=== PATIENT | female | born 1980 | race African-American/Black ===

== ENCOUNTER 2019-09-12 09:29 | Outpatient (CLI) | payer OTHER, SELFPAY ==
--- NOTE | ~2019-09-12 | US_ITS ---
EXAMINATION: US thyroid DATE: 09/12/2019 10:40 INDICATION: Thyroid disorder. TECHNIQUE: Multiple ultrasound images of the thyroid were obtained. COMPARISON: None. FINDINGS: The right thyroid lobe measures 3.9 x 1.1 x 1.1 cm. The left thyroid lobe measures 4.3 x 1.2 x 1.8 c m. The thyroid demonstrates heterogeneous echogenicity. Vascularity is normal. In the right thyroid lobe, there is a 7 mm solid, hypoechoic, [id number] nodule with ill-defined margin without echog enic foci (TI-RADS TR4). In the left thyroid lobe, there is an 8 mm solid, hypoechoic, [id number]-[id number]-dle l nodule with ill-defined margin without echogenic foci (TR4). IMPRESSION: 1. Small thyroid nodules, likely not clinically significant. No follow-up is needed. Reviewed, dictated and finalized at location A. 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 Small thyroid nodules, likely not clinically significant. No follow-up is ne eded.
== END 2019-09-12 09:30 | disposition home or self-care (01) ==
PROVIDERS: PCP Emergency Medicine; Visit Provider Emergency Medicine
DX: E07.9 Disorder of thyroid, unspecified (principal); E04.2 Nontoxic multinodular goiter
CPT/HCPCS: 76536

== ENCOUNTER 2019-09-14 17:24 | Emergency (ER) | payer OTHER, SELFPAY ==
--- NOTE | ~2019-09-14 | XR_ITS ---
EXAMINATION: XR chest 2V DATE: 09/14/2019 19:00 INDICATION: High blood pressure and dizziness TECHNIQUE: PA and lateral views of the chest are obtained. COMPARISON: 05/03/2019 FINDINGS: The lungs are free of acute opacities. There is no pleural effusion or pneumothorax. The ca rdiomediastinal silhouette is normal. The visualized bones and soft tissues are unremarkable. IMPRESSION: 1. No acute cardiopulmonary abnormality. Reviewed, dictated and finalized at location A. [employer]
[2019-09-14 18:30] VITALS: BP 145/94; PULSE 87; RESP 16; TEMP 37; O2SAT 100
--- NOTE | 2019-09-14 18:35 | ECG_ITS ---
Measurements Intervals [place] Rate: 93 P: 58 AR: 135 QRS: 66 QRSD: 85 T: 1 QT: 319 QTc: 399 Interpretive Statements SINUS RHYTHM POSSIBLE LEFT ATRIAL ENLARGEMENT NONSPECIFIC T-WAVE ABNORMALITY- ANTEROLAT/INF LEADS BASELINE ARTIFACT- I, II, AVR, AVL, V1 BORDERLINE ECG Electronically Signed On 09-14-2019 20:12:10 PENAL OFFICER by Rafi Soares D.O.
[2019-09-14 18:55] LABS: Basophils Percent Auto 0.3 % (0.2-1.2); Eosinophils Percent Auto 0.3 % (0-4.4); Hematocrit 44.6 % (37.0-47.0); Hemoglobin 14.7 g/dL (12.0-15.0); Immature Granulocyte Absolute 0.04 K/mm3 (0.00-0.031); Immature Granulocyte Percent A 0.4 % (0-0.5); Lymphocytes Absolute Auto 2.53 K/mm3 (0.9-3.2); Lymphocytes Percent Auto 22.6 % (18.3-44.2); Mean Corpuscular Hemoglobin 29.2 pg (26-34); Mean Corpuscular Volume 88.5 fl (80-100); Mean Platelet Volume 10.4 fl (7.4-10.4); Monocytes Absolute Auto 0.6 K/mm3 (0.1-0.6); Monocytes Percent Auto 4.9 % (2.6-8.5); Neutrophils Percent Auto 71.5 % (45.5-73.1); Platelet Count Result 282 k/mm3 (150-375); Red Blood Count 5.04 M/mm3 (4.2-5.4); Red Cell Distribution Width 12.7 % (11.5-14.5); White Blood Count 11.2 K/mm3 (4.5-10.0)
[2019-09-14 19:10] LABS: Blood Urea Nitrogen 5 mg/dL (7-17); Calcium 9.7 mg/dL (8.4-10.2); Carbon Dioxide 20 mmol/L (22-30); Chloride 100 mmol/L (98-107); Estimated CRCL calculation 115 ml/min; Estimated Glomerular Filt Rate > 60; Glucose 94 mg/dL (65-105); Potassium 3.9 mmol/L (3.4-5.0); Sodium 138 mmol/L (137-145)
[2019-09-14 19:22] LABS: Troponin I < 0.012 ng/mL (0.000-0.034)
--- NOTE | 2019-09-14 21:08 | ED.GENADULT ---
HPI - General Adult General Chief complaint: Unspecified Stated complaint: dizziness; high blood pressure Time Seen by Provider: 09/14/19 21:07 Source: patient and RN notes reviewed Mode of arrival: other Limitations: no limitations History of Present Illness HPI narrative: Pt is a 39 y/o female who presents to the ED with c/o high blood pressure that began yesterday, but is still present today. Pt notes that she went to her PCP's office yesterday and was prescribed Amlodipine 5 mg. Pt has a hx of anxiety is taking Zoloft. Pt took her anxiety medication for a week before stopping so she could start her HTN medication. Pt took her HTN medication while at her PCP's office. Pt states after she took the medication she began to feel dizzy and have blurred vision. She describes her dizziness as near syncope. Pt called her PCP today and she was recommended to take her HTN medication twice today. Pt was also recommended to come to the ED for further evaluation. Pt states that her chest pain has resolved. She believes her HTN is caused by her anxiety. Pt states that she has not felt anxious since she started taking the HTN medication. Pt also reports a poor appetite and a rash, but denies a cough, sore throat, rhinorrhea, and a fever. complaint: Hypertension Onset (ago): day(s) (1) Relieving factors: none Associated symptoms: chest pain ((resolved)), loss of appetite, rash and other (dizziness) Related Data Home Medications Medication Instructions Recorded Confirmed amlodipine 09/14/19 amlodipine 09/14/19 Allergies Allergy/AdvReac Type Severity Reaction Status Date / Time No Known Allergies Allergy Unknown Verified 09/14/19 22:40 Review of Systems Review of Systems: All systems reviewed & are unremarkable except as noted in HPI and below Constitutional: Constitutional: Denies fever(s) and Reports poor appetite ENT: Denies sore throat and Denies other (rhinorrhea) Cardiovascular: Cardiovascular: Reports chest pain ((resolved)) Respiratory: Respiratory: Denies cough Integumentary/Breasts: Skin/Breast: Reports rash Neurologic: Reports dizziness PMFSH Past Medical History Medical History (Updated 09/14/19 @ 22:54 by Emma Kulkarni MD) Anxiety HTN (hypertension) Hypothyroid Surgical History Surgical History (Updated 09/14/19 @ 22:39 by Maria Elena Stoner) History of tubal ligation Social History Social History (Updated 09/14/19 @ 22:44 by Maria Elena Stoner) Smoking status: Former smoker Tobacco type: cigarettes Exam Const: General: cooperative, no acute distress and alert Nutritional Appearance: well nourished Orientation/consciousness: patient oriented x3 Limitations: no limitations HENMT: Mouth: Yes lip normal and Yes moist mucous membranes Throat: other (throat normal) Eyes: Pupils: Equal, round and reactive pupils present EOM: EOMs intact bilaterally Resp: Effort & Inspection: normal respiratory effort Auscultation: clear to auscultation bilaterally Cardio: Rate: regular rate Rhythm: regular rhythm Skin: General skin exam: normal color Neuro: General: patient oriented x3 Cognition (Neuro): normal cognition Speech: normal speech Extrem: General: normal to inspection, full ROM and no clubbing, cyanosis or edema Psych: Mental Status: mental status grossly normal Affect: normal affect Attitude: cooperative Course Course Emergency Course: Patient low risk for heart disease. Low risk heart score. Troponin negative x2. Patient with hypertension noted. Patient has just recently been started on Norvasc. No evidence of orthostasis on orthostatic vitals. Patient also with findings of UTI. Discussed with patient dizziness can be a side effect of blood pressure medications and to continue her blood pressure medication. Advised it may take time for the blood pressure medication to take effect and that she should follow-up with her primary care physician in 1 to 2 weeks for a blood
[2019-09-14 21:36] VITALS: BP 141/91; BP 156/115; BP 158/116; PULSE 121; PULSE 87; PULSE 93
[2019-09-14 22:01] LABS: Prothrombin Time 12.6 Seconds (11.1-14.7)
[2019-09-14 22:02] LABS: Partial Thromboplastin Time 31.2 SECONDS (22.3-36.8)
[2019-09-14 22:16] LABS: Troponin I < 0.012 ng/mL (0.000-0.034)
[2019-09-14 22:19] LABS: Add Urine Microscopic? YES; Appearance Urine Cloudy (Clear); Bacteria Urine Trace /hpf; Bilirubin Urine Negative (Negative); Blood Urine 2+ (Negative); Color Urine Yellow (Yellow); Glucose Urine UA Negative (Negative); Ketones Urine 1+ mg/dL (Negative); Leukocyte Esterase Ur 3+ LEU/UL (Negative); Mucus Urine Few /lpf; Nitrate Urine Negative (Negative); Protein Urine 1+ mg/dL (Negative); RBC Urine 21-50 /hpf (0-2); Specific Grav Ur 1.017 (1.001-1.035); Squamous Epithelial Cell Urine Many /hpf (Few); Urobilinogen Urine Negative mg/dL (<2.0); WBC Urine 31-50 /hpf
--- NOTE | 2019-09-14 22:28 | PC.NURSE ---
Pt refused flu swab
[2019-09-14 23:09] VITALS: BP 148/119; PULSE 77; O2SAT 100
== END 2019-09-14 23:10 | disposition home or self-care (01) ==
PROVIDERS: Emergency Medicine; Emergency Provider Emergency Medicine; PCP Emergency Medicine
DX: I10 Essential (primary) hypertension (principal); R07.9 Chest pain, unspecified; N30.00 Acute cystitis without hematuria; F41.9 Anxiety disorder, unspecified; E03.9 Hypothyroidism, unspecified; Z87.891 Personal history of nicotine dependence; R94.31 Abnormal electrocardiogram [ECG] [EKG]
CPT/HCPCS: 36415; 71046; 80048; 81001; 81025; 84484; 85025; 85610; 85730; 87086; 87088; 93005; 99284

== ENCOUNTER 2020-10-03 12:37 | Emergency (ER) | payer OTHER, SELFPAY ==
--- NOTE | ~2020-10-03 | XR_ITS ---
EXAMINATION: XR ankle RT min 3V EXAM DATE: 10/03/2020 13:03 INDICATION:. Injury last week, twisted. Persistent right ankle pain. Initial encounter. TECHNIQUE: Right ankle frontal, lateral and oblique projections obtained and reviewed. There is no p rior study for comparison. FINDINGS: The right ankle mortise appears intact. There are no acute fractures or dislocations iden tified. There is no subcutaneous gas. The soft tissue is unremarkable. There are no radiopaque fo reign bodies. IMPRESSION: 1. Right ankle. exam without acute osseous findings. Reviewed, dictated and finalized at location A. 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
[2020-10-03 12:39] VITALS: BP 123/104; PULSE 86; RESP 18; TEMP 36.6; O2SAT 98
--- NOTE | 2020-10-03 13:18 | ED.LOWEXIN ---
HPI - Extremity Injury (Lower) General Chief Complaint: Extremity Injury, Lower Stated Complaint: ankle pain Time Seen by Provider: 10/03/20 12:47 Source: RN notes reviewed History of Present Illness HPI Narrative: Patient presents emergency room from home for right ankle sprain. Patient states 6 days ago she sprained her ankle when she tripped over a rug in her house. She said following that she did go out of town the next day to [place] in [place] and was walking on it all weekend she states she noticed swelling to the right lateral ankle and continued pain and came for further evaluation she is able to walk on it but it is sore she denies any other injuries she denies any knee pain fevers or chills numbness or tingling or any other symptoms Related Data Allergies Allergy/AdvReac Type Severity Reaction Status Date / Time No Known Allergies Allergy Unknown Verified 10/03/20 12:44 Review of Systems Review of Systems: Narrative: Gen.: Denies fevers or chills Musculoskeletal: See HPI Neuro: Denies numbness, tingling, weakness Skin: Denies rash Endo: Denies DM PMFSH Past Medical History Medical History Anxiety HTN (hypertension) Hypothyroid Surgical History Surgical History (Updated 09/14/19 @ 22:39 by Maria Elena Stoner) History of tubal ligation Social History Social History Smoking status: Former smoker Tobacco type: cigarettes Gender identity (if verbalized by the patient): Female Exam Narrative: Exam Narrative: APPEARANCE: No acute distress, nontoxic, resting in bed Eyes: EOMI HEENT: Normocephalic, atraumatic, RESPIRATORY: No respiratory distress MUSCULOSKELETAl: Tender to palpation of the right lateral ankle with swelling present there is no tenderness over the anterior medial ankle no tenderness of the proximal fibula or the base of the fifth metatarsal dorsalis pedis pulse 2+ neurovascular intact NEURO: Awake and alert. Following commands, speech normal, no focal deficits SKIN:: Warm, dry. Normal Color no rash or lesions Course Course Emergency Course: Discussed with patient results of workup and diagnosis. Discussed need for follow-up with primary care, proper use of medication, and reasons to return to the emergency department. Patient understands and agrees to current treatment plan Vital Signs Vital signs: Vital Signs Temperature 97.8 F 10/03/20 12:39 Pulse Rate 86 10/03/20 12:39 Respiratory Rate 18 10/03/20 12:39 Blood Pressure 123/104 H 10/03/20 12:39 Pulse Oximetry 98 10/03/20 12:39 Temperature 97.8 F 10/03/20 12:39 Pulse Rate 86 10/03/20 12:39 Respiratory Rate 18 10/03/20 12:39 Blood Pressure 123/104 H 10/03/20 12:39 Pulse Oximetry 98 10/03/20 12:39 MDM - Extremity Injury (Lower) Imaging Data Radiologist's impression: ITS Impressions Ankle X-Ray 10/03/20 13:04 IMPRESSION: 1. Right ankle. exam without acute osseous findings. Discharge Plan Discharge Clinical Impression: Ankle sprain and strain Patient Disposition: Home, Self-Care Condition: Stable Instructions: Antibiotic Form, Ankle Sprain (ED) Additional Instructions: Return for increasing pain numbness or tingling in the extremities or any other symptoms or concern. Keep the leg elevated at rest Prescriptions: New ibuprofen [IBU] 600 mg tablet 600 mg PO Q6H PRN (Reason: pain) Qty: 20 RF: 0 Follow-up/Referrals: Cristopher Mosley MD [Primary Care Provider] - 2 Days Time of Disposition: 13:20
== END 2020-10-03 13:40 | disposition home or self-care (01) ==
LOC: ANHED 13:26
PROVIDERS: Emergency Provider Emergency Medicine; PCP Emergency Medicine
DX: S93.401A Sprain of unspecified ligament of right ankle, initial encounter (principal); S96.911A Strain of unspecified muscle and tendon at ankle and foot level, right foot, initial encounter; I10 Essential (primary) hypertension; Z87.891 Personal history of nicotine dependence; W22.8XXA Striking against or struck by other objects, initial encounter
CPT/HCPCS: 73610; 99283

== ENCOUNTER 2022-05-04 14:39 | Emergency (ER) | payer OTHER, SELFPAY ==
[2022-05-04 14:42] VITALS: BP 126/96; PULSE 106; RESP 18; TEMP 36.6; O2SAT 100
--- NOTE | 2022-05-04 15:14 | ED.GENADULT ---
HPI - General Adult General Chief complaint: Extremity Injury, Upper Stated complaint: upper extremity pain and swelling Time Seen by Provider: 05/04/22 14:42 History of Present Illness HPI narrative: 42-year-old female presents the emergency room for evaluation of a swelling, pruritus, redness, and tenderness to her right forearm and wrist. Patient states that she was eating at [employer] last night wearing a new piece of jewelry on her right arm prior to the onset of symptoms. 66 patient denies any known injury, insect stings. Patient denies any environmental or food allergies. Patient soaps or detergents. Related Data Allergies Allergy/AdvReac Type Severity Reaction Status Date / Time No Known Allergies Allergy Unknown Verified 05/04/22 14:47 Review of Systems Review of Systems: CONSTITUTIONAL: Denies fever, chills, or sweats. EYES: Denies visual changes, redness, or discharge. ENT: Denies rhinorrhea, congestion, sore throat, or otalgia. CARDIOVASCULAR: Denies chest pain, palpitations, or edema. RESPIRATORY: Denies cough or dyspnea. GASTROINTESTINAL: Denies abdominal pain, nausea, vomiting, or diarrhea. GENITOURINARY: Denies dysuria or hematuria. SKIN: Reports rash to her right forearm MUSCULOSKELETAL: Denies back pain, joint pain, or myalgia. NEUROLOGIC: Denies headache, numbness, dizziness, or weakness. PSYCHIATRIC: Denies anxiety or depression. [facility] Past Medical History Medical History Anxiety HTN (hypertension) Hypothyroid Surgical History Surgical History History of tubal ligation Social History Social History Smoking status: Former smoker Tobacco type: cigarettes Gender identity (if verbalized by the patient): Female Exam Narrative: GENERAL: Well-appearing, well-nourished, no physical limitations, and in no acute distress. HEAD: Normocephalic, atraumatic. EYES: Conjunctivae normal, PERRLA and EOMI. CHEST: Clear to auscultation. No respiratory distress. No wheezes rales or rhonchi. No tenderness. HEART: Regular rate and rhythm. No murmur heard. Normal peripheral pulses. EXTREMITIES: Normal range of motion. No edema. No clubbing or cyanosis SKIN: RUE: Erythema extending from radiocarpal joint to mid forearm. Soft tissue swelling noted to forearm wrist and hand. No signs of injury or open wounds. NEURO: No focal deficits. Alert and oriented x3. MAEW. CN's II-XI intact bilaterally, normal gait PSYCH: Cooperative. Normal mood and affect. Course Vital Signs Vital signs: Vital Signs Temperature 36.6 C 05/04/22 14:42 Pulse Rate 106 H 05/04/22 14:42 Respiratory Rate 18 05/04/22 14:42 Blood Pressure 126/96 H 05/04/22 14:42 Pulse Oximetry 100 05/04/22 14:42 Oxygen Delivery Room Air 05/04/22 14:42 Temperature 36.6 C 05/04/22 14:42 Pulse Rate 106 H 05/04/22 14:42 Respiratory Rate 18 05/04/22 14:42 Blood Pressure 126/96 H 05/04/22 14:42 Pulse Oximetry 100 05/04/22 14:42 Oxygen Delivery Room Air 05/04/22 14:42 Medical Decision Making Vital Signs Vital Signs: Vital Signs Temperature 36.6 C 05/04/22 14:42 Pulse Rate 106 H 05/04/22 14:42 Respiratory Rate 18 05/04/22 14:42 Blood Pressure 126/96 H 05/04/22 14:42 Pulse Oximetry 100 05/04/22 14:42 Oxygen Delivery Room Air 05/04/22 14:42 Temperature 36.6 C 05/04/22 14:42 Pulse Rate 106 H 05/04/22 14:42 Respiratory Rate 18 05/04/22 14:42 Blood Pressure 126/96 H 05/04/22 14:42 Pulse Oximetry 100 05/04/22 14:42 Oxygen Delivery Room Air 05/04/22 14:42 Discharge Plan Discharge Clinical Impression: Allergic reaction Patient Disposition: Home, Self-Care Condition: Stable Instructions: Antibiotic Form, General Allergic Reaction (ED) Additional Instructions: Recommend taking Benadry
[2022-05-04] MEDS: diphenhydrAMINE HCl CAP 25 MG CAPSULE 50 MG PO (15:56)
[2022-05-04] MEDS: FAMOTIDINE 20 MG TABLET PO (15:56)
== END 2022-05-04 18:05 | disposition home or self-care (01) ==
PROVIDERS: Emergency Provider Nurse Practitioner Family; PCP Emergency Medicine
DX: T78.40XA Allergy, unspecified, initial encounter (principal); I10 Essential (primary) hypertension; E03.9 Hypothyroidism, unspecified; Z87.891 Personal history of nicotine dependence
CPT/HCPCS: 96372; 99283; A9270; J1100

== ENCOUNTER 2022-11-09 18:33 | Emergency (ER) | payer OTHER, SELFPAY ==
[2022-11-09 18:40] VITALS: BP 140/100; PULSE 100; RESP 18; TEMP 36.6; O2SAT 98
--- NOTE | 2022-11-09 19:36 | PC.NURSE ---
Patient approached the intake desk and informed greeting card writer that she didn't want to wait any longer and she would come back in the morning. Patient alert and ambulatory upon leaving the ED.
== END 2022-11-09 20:03 | disposition left against medical advice (07) ==
LOC: ANHED 19:48
PROVIDERS: PCP Emergency Medicine
DX: R21 Rash and other nonspecific skin eruption (principal)
CPT/HCPCS: 99199

== ENCOUNTER 2022-11-10 12:27 | Emergency (ER) | payer OTHER, SELFPAY ==
--- NOTE | ~2022-11-10 | US_ITS ---
EXAMINATION: US venous doppler UE LT DATE: 11/10/2022 16:00 INDICATION: Left upper limb swelling, pain, and erythema. TECHNIQUE: Grayscale ultrasound images without and with compression and Doppler ultrasound images of the left upper extremity veins were obtained. COMPARISON: Ultrasound 08/25/2019 FINDINGS: The visualized portions of the left internal jugular vein, subclavian vein, axillary vein, brachial v eins, basilic vein, cephalic vein, radial vein, and ulnar vein are patent. IMPRESSION: 1. No deep venous thrombosis. Reviewed, dictated and finalized at location A.
[2022-11-10 12:29] VITALS: BP 125/80; PULSE 102; RESP 16; TEMP 36.6; O2SAT 100
--- NOTE | 2022-11-10 13:47 | ED.UPPEXIN ---
HPI - Extremity Injury (Upper) General Chief Complaint: Extremity Injury, Upper Stated Complaint: Rt Arm Swollen Time Seen by Provider: 11/10/22 13:34 History of Present Illness HPI narrative: Patient is a 42-year-old female here for evaluation of a paretic rash to her left upper extremity. Patient states that the rash showed up yesterday without an obvious trigger. States that she had a similar episode happen about 6 months ago, she was treated for allergic reaction with steroids Benadryl and Pepcid with improvement. At that time she thought she was reacting to some metal in her bracelet. She denies any exposure to similar metals. She had no throat tightness, difficulty breathing, swelling in the oropharynx. She denies any pain, numbness or tingling in the arm. Related Data Allergies Allergy/AdvReac Type Severity Reaction Status Date / Time No Known Allergies Allergy Unknown Verified 11/10/22 13:34 Review of Systems Review of Systems: Gen: Denies fevers or chills Eyes: Denies eye pain or visual change ENT: Denies congestion Respiratory: Denies shortness of breath or cough CV: Denies chest pain or palpitations GI: Denies abdominal pain nausea, emesis or diarrhea denies burning, urgency, frequency or hematuria Musculoskeletal: Denies back pain or muscle pain Neuro: Denies numbness, tingling, weakness or focal weakness Skin: Reports rash Except as documented, all other systems reviewed and negative [facility] Past Medical History Medical History Anxiety HTN (hypertension) Hypothyroid Surgical History Surgical History History of tubal ligation Social History Social History Smoking status: Former smoker Tobacco type: cigarettes Gender identity (if verbalized by the patient): Female Exam Narrative: Gen: Alert, oriented, no acute distress Eyes: EOMI, no icterus Pulm: Respirations even and unlabored, symmetric thorax expansion, no audible stridor or visible cyanosis CV: Regular rate per telemetry GI: No distension, no voluntary/involuntary guarding Neuro: AOx4, moves all extremities without apparent difficulty or weakness, follows commands Skin: Patient has a 8x 5 cm patch of blanching erythema to left forearm Psych: Normal mood/affect, insight/judgement good, adequate fund of knowledge, recent/remote memory intact Course Vital Signs Vital signs: Vital Signs Temperature 97.8 F 11/10/22 12:29 Pulse Rate 102 H 11/10/22 12:29 Respiratory Rate 16 11/10/22 12:29 Blood Pressure 125/80 11/10/22 12:29 Pulse Oximetry 100 11/10/22 12:29 Oxygen Delivery Room Air 11/10/22 12:29 Temperature 97.8 F 11/10/22 12:29 Pulse Rate 102 H 11/10/22 12:29 Respiratory Rate 16 11/10/22 12:29 Blood Pressure 125/80 11/10/22 12:29 Pulse Oximetry 100 11/10/22 12:29 Oxygen Delivery Room Air 11/10/22 12:29 MDM - Extremity Injury (Upper) MDM Narrative Medical decision making narrative: 42-year-old female here for evaluation of a patch of pruritic erythema to her left forearm that has developed over the past day. She has a history of contact dermatitis and states it feels similar but she is unsure what she is allergic to. The erythema is blanching, has a negative Nikolsky sign, no throat tightness or involvement of the mucous membranes to suggest SJS or TENS. The arm is quite diffusely swollen so an ultrasound was ordered which is negative for DVT. She was treated with Benadryl, Decadron and Pepcid with improvement of her symptoms. Will send home with topical steroid cream and allergy follow-up. Patient is agreeable with this plan, we discussed return precautions and she voiced understanding. Discharge Plan Discharge Clinical Impression: Contact dermatitis Patient Disposition: Home, Self-Care Condition: Sta
[2022-11-10] MEDS: FAMOTIDINE 20 MG TABLET 40 MG PO (13:56)
[2022-11-10] MEDS: diphenhydrAMINE HCl CAP 25 MG CAPSULE 50 MG PO (13:56)
== END 2022-11-10 16:29 | disposition home or self-care (01) ==
PROVIDERS: Emergency Provider Physician Assistant; PCP Emergency Medicine
DX: L25.9 Unspecified contact dermatitis, unspecified cause (principal); F41.9 Anxiety disorder, unspecified; I10 Essential (primary) hypertension; E03.9 Hypothyroidism, unspecified
CPT/HCPCS: 93971; 96372; 99283; A9270; J1100